=== PATIENT | female | born 1930 | race African-American/Black ===

== ENCOUNTER 2017-02-11 14:31 | Outpatient (CLI) | payer MEDICARE, OTHER ==
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
--- NOTE | 2017-02-11 18:08 | MRI ---
MRI LUMBAR SPINE WITHOUT CONTRAST: 02/11/17 Multiplanar and multisequential imaging lumbar spine obtained. HISTORY: Lumbar spinal stenosis. Back pain. FINDINGS: The lumbar vertebrae maintain height and alignment. Degenerative disc changes are seen at all levels . Loss of disc spaces most pronounced at L2-3 and L5-S1. Mild to moderate degenerative osteophytes a re seen from the lumbar vertebrae. At L1-2, there is a broad based disc bulge flattening thecal sac. Facet arthrosis is present. Mild c entral canal stenosis. At L2-3, diffuse disc bulge combined with facet hypertrophy results in mild to moderate central [place] l stenosis. At L3-4, broad based disc bulge is more prominent. Facet and ligamentous hypertrophy is prominent. M oderate to severe central canal stenosis at this level. At L4-5, broad based disc bulge is prominent. Facet and ligamentous hypertrophy is pronounced. Sever e central canal stenosis. At L5-S1, diffuse disc bulge. Facet and ligamentous hypertrophy. Moderate central canal stenosis. Br oad based bulge is asymmetric to the right extending into the right foramina. IMPRESSION: Central canal stenosis at all levels of the lumbar spine, most severe at L3-4 and L4-5 as described above. POS: [facility]
== END 2017-02-11 14:32 | disposition home or self-care (01) ==
LOC: TBSIIMAG 14:31
PROVIDERS: ATTEND Neurological Surgery
DX: S06.890A Other specified intracranial injury without loss of consciousness, initial encounter (principal); M54.16 Radiculopathy, lumbar region; M54.12 Radiculopathy, cervical region; M48.02 Spinal stenosis, cervical region
CPT/HCPCS: 70450; 72148

== ENCOUNTER 2017-02-17 13:05 | Outpatient (CLI) | payer MEDICARE, OTHER ==
[2017-02-17] MEDS ORDERED: Gadobenate Dimeglumine 529 MG/1 ML (20ML VIAL) ONE (16:05)
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
== END 2017-02-17 13:06 | disposition home or self-care (01) ==
LOC: TBSIIMAG 13:05
PROVIDERS: ATTEND Neurological Surgery
DX: S06.890A Other specified intracranial injury without loss of consciousness, initial encounter (principal)
CPT/HCPCS: 70553; A9579

== ENCOUNTER 2018-10-06 14:11 | Outpatient (CLI) | payer MEDICARE, OTHER ==
--- NOTE | 2018-10-06 15:37 | MRI ---
LUMBAR SPINE MRI WITHOUT IV CONTRAST: 10/06/18 HISTORY: Low back pain, lumbar stenosis with claudication. COMPARISON: 02/11/17. FINDINGS: Bilateral renal and liver T2 hyperintense and T1 hypointense foci, evidence for small cysts. Conus me dullaris region is unremarkable terminating at L1. Generalized disc desiccation changes with ligament and facet hypertrophic changes. T12-L1: Small bilateral nerve root sheath cyst, stable. L1-L2: Mild disc bulging with mild bilateral recess stenosis and foraminal stenosis. L2-L3: Extensive type I end plate changes at this level. Moderate central canal and moderate bilatera l recess stenosis, worse on the left side with moderate to severe bilateral foraminal stenosis. L3-L4: Mixed including type I end plate changes. Moderate to severe central canal and lateral recess stenosis and bilateral foraminal stenosis. L4-L5: Diffuse disc bulging with a somewhat more focal left paracentral protrusion resulting in sever e central canal and lateral recess stenosis and moderate to severe bilateral foraminal stenosis. L5-S1: Severe disc bulging with mild central canal and lateral recess stenosis and moderate to sever e bilateral foraminal stenosis. IMPRESSION: 1. Variable severity and multilevel canal, lateral recess, and foraminal stenosis. 2. Prominent mixed including type I end plate changes at L2-L3 and L3-L4. 3. Other findings as above. POS: [facility]
== END 2018-10-06 14:12 | disposition home or self-care (01) ==
LOC: TBSIIMAG 14:11
PROVIDERS: ATTEND Neurological Surgery
DX: M48.062 Spinal stenosis, lumbar region with neurogenic claudication (principal); M48.8X4 Other specified spondylopathies, thoracic region; M51.27 Other intervertebral disc displacement, lumbosacral region; M48.07 Spinal stenosis, lumbosacral region
CPT/HCPCS: 72148